=== PATIENT | male | born 1955 | race Caucasian/White ===

== ENCOUNTER → 2020-10-28 00:27 | Outpatient (CLI) | payer MEDICARE, SELFPAY ==
[2020-10-28 17:44] LABS: SARS-CoV-2 RNA PCR Negative
== END ==
PROVIDERS: PCP Internal Medicine; Visit Provider Internal Medicine Gastroenterology
DX: Z01.812 Encounter for preprocedural laboratory examination (principal); Z20.822 Contact with and (suspected) exposure to COVID-19
CPT/HCPCS: C9803; U0003; U0005

== ENCOUNTER 2020-10-31 01:12 | Day surgery (SDC) | payer MEDICARE, SELFPAY ==
[2020-10-18 13:22] VITALS: BMI 35.3
[2020-10-31 06:41] VITALS: BP 145/104; PULSE 96; RESP 20; TEMP 35.8; O2SAT 96; BMI 36.8
[2020-10-31] MEDS: LACTATED RINGERS 1,000 ML 150 ML IV CONT (06:57)
--- NOTE | 2020-10-31 07:24 | PM.HPGS ---
History of Present Illness History of Present Illness Consent: Risks, benefits, and alternatives have been discussed and questions answered. Patient agrees to proceed with procedure. Chief complaint: Personal Hx of Colon Polyps, Family Hx of Colon CA Narrative: Calin Boss is a 65 year old male here for colon cancer screening. He has had polyps removed in the past Review of Systems Review of Systems: All systems reviewed & are unremarkable except as noted in HPI and below PMFSH Social History Social History Smoking status: Never smoker Alcohol intake: current Drinks per week: 6 Substance use type: does not use Living arrangements: with family Spiritual care concerns: No Meds Home Medications and Allergies Home Medications Medication Instructions Recorded Confirmed Type No Home Medications 10/18/20 10/18/20 History Allergies Allergy/AdvReac Type Severity Reaction Status Date / Time No Known Allergies Allergy Verified 10/31/20 06:40 Vital Signs Vital Signs - 24 hr 10/31/20 06:41 Temperature 35.8 C L Pulse Rate 96 Respiratory Rate 20 Blood Pressure 145/104 H Pulse Oximetry 96 Exam Resp: Auscultation: clear to auscultation bilaterally Cardio: Rate: regular rate Rhythm: regular rhythm GI: GI Palp: Yes Soft to palpation and No Tenderness to palpation present (GI) Assessment and Plan Assessment and plan (1) Colon cancer screening: Code(s): Z12.11 - Encounter for screening for malignant neoplasm of colon Status: Acute Assessment and Plan: Colonoscopy with possible biopsy or polypectomy or cautery or injection of substances.
--- NOTE | 2020-10-31 07:30 | WPDANESEPPF ---
Anes - Initial Pre Proc Eval Procedure: Operation Date: 10/31/20 08:00 Proposed Procedures p Screening Colonoscopy - Denzel Sauceda MD Date/Time: 10/31/20 07:30 Surgeon: Denzel Sauceda MD Pre Op Diagnosis: Personal Hx of Colon Polyps, Family Hx of Colon CA Patient Data Age: 65 Gender: M Height: 5 ft 11 in Weight: 119.7 kg Last Vital Signs Temp 96.5 F L 10/31/20 06:41 Pulse 96 10/31/20 06:41 Resp 20 10/31/20 06:41 BP 145/104 H 10/31/20 06:41 Pulse Ox 96 10/31/20 06:41 Allergies Allergy/AdvReac Type Severity Reaction Status Date / Time No Known Allergies Allergy Verified 10/31/20 06:40 Home Medications Medication Instructions Recorded Confirmed Type No Home Medications 10/18/20 10/18/20 History Patient hx anesthesia problems: none Family hx anesthesia problems: none [facility] Past Medical History Medical History (Updated 10/31/20 @ 07:29 by Kemar Mendez MD) Obesity Social History Social History Smoking status: Never smoker Alcohol intake: current Drinks per week: 6 Substance use type: does not use Living arrangements: with family Spiritual care concerns: No Anes - Eval Final PreProcedure Day of Procedure 10/31/20 07:30 Patient weight: obese Heart: regular rate and rhythm Lungs: clear to auscultation Airway: Mallampati scale Last oral intake: >/= 8 hours ASA classification: II Emergent: no Anesthetic plan: proceed Anesthesia type and monitoring: general GIVS and standard monitoring Informed Consent: The patient's anesthetic plan and its attendant risks and benefits were discussed with the patient/family/POA. Questions were solicited and answers provided to the satisfaction of the patient/family/POA.
[2020-10-31] MEDS: SIMETHICONE ORAL SUSPENSION 20 MG/0.3 ML 30 ML BOTTLE 0.6 ML IRRIGATION (07:55)
[2020-10-31 08:04] VITALS: BP 103/64; PULSE 72; RESP 20; O2SAT 95
[2020-10-31 08:14] VITALS: BP 115/72; PULSE 68; RESP 20; O2SAT 96
[2020-10-31 08:24] VITALS: BP 115/78; PULSE 67; RESP 20; O2SAT 95
== END 2020-10-31 08:33 | disposition home or self-care (01) ==
PROVIDERS: PCP Internal Medicine; Visit Provider Internal Medicine Gastroenterology
PROC: 0DJD8ZZ Inspection of Lower Intestinal Tract, Via Natural or Artificial Opening Endoscopic (ICD-10-PCS; CPT 45378; principal; 2020-10-31 08:00)
DX: Z12.11 Encounter for screening for malignant neoplasm of colon (principal); D12.2 Benign neoplasm of ascending colon; K57.30 Diverticulosis of large intestine without perforation or abscess without bleeding; Z80.0 Family history of malignant neoplasm of digestive organs; E66.9 Obesity, unspecified; Z68.36 Body mass index [BMI] 36.0-36.9, adult
CPT/HCPCS: 45385; 88305; C9803; J2704; J7120; U0003; U0005

== ENCOUNTER 2025-04-22 15:42 | Emergency (ER) | payer MEDICARE, SELFPAY ==
[2025-04-22] VITALS (10 sets, daily range): BP systolic 132–153; BP diastolic 78–105; PULSE 67–90; RESP 14–18; TEMP 36.6–36.9; O2SAT 97–100
--- NOTE | ~2025-04-22 | CT_ITS ---
EXAMINATION: CTA BRAIN/CAROTID DATE: 04/22/2025 16:19 INDICATION: Transient ischemic episode TECHNIQUE: Computed tomographic angiography (CTA) of the head and neck was performed with 100 mL Omnipaque-350 intravenous contrast. Multiplanar reconstructions and maximum intensity projection 3D-reconstructions of the carotid arteries and of the intracranial arteries were created by the technologist on a separate workstation. Automated exposure control and iterative reconstruction technique were employed.The dose-length product was 1201.99 mGy-cm. COMPARISON: None. FINDINGS: Intracranial arteries Left vertebral artery is dominant. Minimal amount of nonhemodynamically significant atherosclerotic calcification at the bilateral carotid siphons. There is no hemodynamically significant stenosis in the vertebral, basilar and internal carotid arteries. Both A1 and P1 segments are patent.. There is also a patent intercommunicating artery. There are no aneurysms identified. Cerebral arterial arborization appears symmetric. Carotid arteries: The aortic arch and the great vessels arising from the arch are normal in caliber with no dissection or hemodynamically significant stenosis. There is no evident atherosclerotic plaque with 0% stenosis of the right and left carotid bulbs relative to normal distal artery lumen diameter (NASCET criteria). Mild cervical and upper thoracic spondylosis. Mild dependent predominant atelectasis in the visualized upper lungs which may be related to expiratory phase of imaging. Goiter with asymmetric enlargement of the right thyroid lobe relative to the left without clearly defined thyroid nodules. IMPRESSION: 1. No evident atherosclerotic plaque with 0% stenosis of the right and left carotid bulbs relative to normal distal artery lumen diameter (NASCET criteria). 2. Unremarkable cerebral CT angiogram with no hemodynamically significant stenosis, thrombosis or aneurysm. Reviewed, dictated and finalized at location A. IMPRESSION: 1. No evident atherosclerotic plaque with 0% stenosis of the right and left car otid bulbs relative to normal distal artery lumen diameter (NASCET criteria). 2. Unremarkable cerebral CT angiogram with no hemodynamically significant steno sis, thrombosis or aneurysm.
--- NOTE | ~2025-04-22 | CT_ITS ---
EXAMINATION: CT brain wo jeff, 04/22/2025 16:00 CDT HISTORY: tia COMPARISON: No comparisons available. Technique: Axial images obtained of the brain without contrast. One or more of the following dose reduction techniques were used: automated exposure control, adjustment of the mA and/or kV according to patient size, use of iterative reconstruction technique. Findings: No acute infarct or parenchymal hemorrhage. No abnormal mass or mass effect. No midline shift. No extra-axial fluid collections. No hydrocephalus. Mastoid air cells unremarkable. Sinuses and orbits unremarkable. No acute fracture. No significant facial or scalp soft tissue swelling evident. No radiopaque foreign body is seen. Impression: 1.No acute intracranial abnormality. Reviewed, dictated and finalized at location A. Impression: 1.No acute intracranial abnormality.
--- NOTE | ~2025-04-22 | XR_ITS ---
EXAMINATION: XR chest 1V, 04/22/2025 16:07 CDT HISTORY: tia COMPARISON: No comparisons available. Technique: Single view. Findings: The lungs are clear, no effusion. No pneumothorax. Heart is normal size. Mediastinal and hilar contours are within normal limits. Bony thorax no acute abnormality. Impression: No acute cardiopulmonary abnormality. Reviewed, dictated and finalized at location A. Impression: No acute cardiopulmonary abnormality.
--- NOTE | 2025-04-22 15:52 | ECG_ITS ---
Test Date: 2025-04-22 16:29:31 Measurements Intervals Harper Rate: 78 P: 60 FL: 162 QRS: -7 QRSD: 98 T: 10 QT: 370 QTc: 424 Interpretive Statements SINUS RHYTHM POOR R-WAVE PROGRESSION CANNOT RULE OUT INFERIOR INFARCTION, AGE INDETERMINATE ABNORMAL ECG No previous ECG available for comparison Electronically Signed On 04-22-2025 18:01:03 CDT by Juan Hewitt M.D.
[2025-04-22 16:08] LABS: Estimated CRCL calculation 69 ml/min; Estimated Glomerular Filt Rate > 60
[2025-04-22 16:11] LABS: Hematocrit 50.5 % (42.0-52.0); Hemoglobin 16.1 g/dL (14.0-18.0); Immature Granulocyte Percent A 0.4 % (0-0.5); Lymphocytes Absolute Auto 1.77 K/mm3 (0.9-3.2); Mean Corpuscular HGB Conc 31.9 g/dl (32-36); Mean Corpuscular Hemoglobin 29.4 pg (26-34); Mean Corpuscular Volume 92.3 fl (80-100); Nucleated Red Blood Cells Absolute Auto 0.000 K/mm3 (0.0-0.012); Nucleated Red Blood Cells Perc 0.0 % (0.0-0.2); Platelet Count Result 208 k/mm3 (150-375); Red Blood Count 5.47 M/mm3 (4.6-6.20); White Blood Count 7.8 K/mm3 (4.5-10.0)
[2025-04-22 16:16] LABS: Alanine Aminotransferase 23 U/L (6-50); Albumin Level 4.5 g/dL (3.5-5.1); Alkaline Phosphatase 87 U/L (38-126); Anion Gap 6 mmol/L (4-12); Aspartate Amino Transferase 26 U/L (17-59); Bilirubin,Total 0.8 mg/dL (0.2-1.3); Blood Urea Nitrogen 13 mg/dL (9-20); Calcium 9.2 mg/dL (8.4-10.2); Carbon Dioxide 27 mmol/L (22-30); Chloride 106 mmol/L (98-107); Estimated CRCL calculation 74 ml/min; Estimated Glomerular Filt Rate > 60; Glucose 106 mg/dL (65-110); Potassium 4.1 mmol/L (3.4-5.0); Sodium 139 mmol/L (137-145); Total Protein 8.2 g/dL (6.3-8.2)
[2025-04-22 16:22] LABS: INR 1.0; Partial Thromboplastin Time 29.7 Seconds (22.3-36.8); Prothrombin Time 13.2 Seconds (11.1-14.7)
[2025-04-22 16:28] LABS: Troponin I < 0.012 ng/mL (0.000-0.034)
--- OUTSIDE RECORDS SUMMARY | 2025-04-22 17:35 | XMS_ITS | Clinical Summary ---
Author Organization [facility] [address] Address [address] [place] [address] Care Team Providers Care Manager Room Name Role Phone Jericho Watson MD Primary Care Provider [phone] Allergies No known active allergies Medications rosuvastatin (CRESTOR) 5 mg tablet Take 1 tablet (5 mg total) by mouth daily 90 tablet 1 4 06/29/20 25 Active sildenafiL (VIAGRA) 100 mg tablet TAKE 1 TABLET BY MOUTH NEEDED FOR ERECTILE DYSFUNCTION 18 tablet 2 5 Active Active Problems Problem Noted Date Diagnosed Date Routine general medical exam ination at a health care facility 06/24/2023 Assessment & Plan (06/24/2023 1:06 PM ADOPTION SPECIALIST): Labs today, including Hep C Ab Encouraged 150 min/weekly of moderate intensity activity Limit EtOH to 2/daily Will verify last dates of Tdap and 2nd dose of Shingrix COLO due 2025 Will start atorvastatin 20mg HS for LDL 182, TC 235 (use, s/e reviewed) Handout of Diabetic diet given today Resolved Problems Problem Noted Date Diagnosed Date Resolved Date Acute pain of left knee 10/16/202106/06 Assessment & Plan (10/16/2021 9:10 AM CDT): Has failed PT and conservative measures, xrays negative Will obtain MRI of L knee Immunizations Immunization Administration Dates Next Due Influenza, Quadrivalent, Rec ombinant, Egg Free, Preservative Free, Intramuscular 05/17/2020 Influenza, Unspecified 05/21/2023 Pneumococcal Conjugate PCV 13 06/16/2020 Pneumococcal Polysaccharide PPV23 10/17/2021 ZOSTER Recombinant 05/25/2020 Surgical History Surgery Date Site/Laterality Comments TONSILLECTOMY KNEE SURGERY Left Torn meniscus Medical History Medical History Date Comments Hyperlipidemia Family History Medical History Relation Name Comments Diabetes Brother 1 unsure Cancer Brother 2 Oropharyngeal No Known Problems Brother 3 No Known Problems Maternal Grandfather No Known Problems Maternal Grandmother Cancer Mother Lung No Known Problems Paternal Grandfather No Known Problems Paternal Grandmother Relation Name Status Comments Brother 1 Alive Brother 2 Alive Brother 3 Alive Father Maternal Grandfather Maternal Grandmother Mother Paternal Grandfather Paternal Grandmother Social History Tobacco Use Types Packs/Day Years Used Date Smoking Tobacco: Never Tobacco Cessation:Counseling Given: Not Answered AUDIT-C Answer Date Recorded Q1: How often do you have a drink containing alc ohol? 2-3 times a week 06/24/2023 Q2: How many drinks containi ng alcohol do you have on a typical day when you are drinking? 5 or 6 06/24/2023 Frequency of Binge Drinking Not on file 06/06 PHQ-2 Answer Date Recorded PHQ-2 Total Score (If total score is 3 or more points, staff should administer the PHQ-9) 0 06/22/2024 Sex and Gender Information Value Date Recorded Sex Assigned at Not on file Legal Sex Male 5:51 PM ADOPTION SPECIALIST Gender Identity Male 04/21/2021 9:19 PM CDT Sexual Orientation Straight 04/21/2021 9: 19 PM CDT Obstetrics History Last Filed Vital Signs Vital Sign Reading Time Taken Comments Blood Pressure 110/78 06/25/2024 2:04 PM ADOPTION SPECIALIST Pulse 81 06/25/2024 2:04 PM ADOPTION SPECIALIST Temperature - - Respiratory Rate - - Oxygen Saturation 95% 06/25/2024 2:04 PM ADOPTION SPECIALIST Inhaled Oxygen Concentration - - Weight 110.7 kg (244 lb) 06/25/2024 2:04 PM ADOPTION SPECIALIST Height 177.8 cm (5' 10) 09/25/2023 11:50 AM ADOPTION SPECIALIST Body Mass Index 35.01 09/25/2023 11:50 AM ADOPTION SPECIALIST Plan of Treatment Scheduled Procedures Name Priority Associated Diagnoses Date/Ti me COLONOSCOPY Encounter for screening colonoscopy Health Maintenance Due Date Last Done Comments DTaP/Tdap/Td Vaccine (1 - Tdap) 1966 Hepatitis B Screening 1971 Zoster Vaccine (2 of 2) 07/20/2020 05/25/2020 Influenza Vaccine (#1) 2025 05/21/2023, 2019 Depression Screening 06/25/2025 06/25/2024, 06/24/2023, 06/22/2022, Additional history exists Fall Risk Assessment 06/25/2025 06/25/2024, 06/24/2023, 06/22/2022, Additional history exists Well Visit 65+ 06/25/2025 06/25/2024, 06/06, 06/22/2022, Additional history exists Colon Cancer Screening-Colonoscopy 10/31/2025 10/31/2020 Pneumococcal vaccine 65+ Completed 10/17/2021, 06/05 Hepatitis C Screening Completed 06/24/2023 Prostate Cancer Screening-PSA Discontinued , 06/24/2023, 06/22/2022, Additional history exists Procedures Procedure Name Priority Date/Time Associated Diagnosis Comments PSA SCREEN Routine 06/25/2024 3:56 PM ADOPTION SPECIALIST Routine general medical examination at a health care facility Screening for prostate cancer Mixed hyperlipidemia HEPATITIS C ANTIBODY Routine 06/24/2023 1:16 PM ADOPTION SPECIALIST Pure hypercholesterolemia COLONOSCOPY Routine 10/31/2020 from Last 3 Months or Most Recently Relevant to Health Maintenance Results * PSA screen (06/25/2024 3:56 PM ADOPTION SPECIALIST) PSA-Total 0.70 <=6.20 ng/mL Comment: Interpretive Data AGE SEX REFERENCE INTERVAL 0 minutes-150 years Female None 0 minutes-49 years Male None 50-59 years Male 0-3.90 60-69 years Male 0-5.40 70-79 years Male 0-6.20 80-150 years Male 0-6.20 The Ugo PSA Total assay procedure was used. Results from different manufacturers or methods may not be comparable. Serial testing should be performed using the same method. Current interpretive data last revised 21. Blood 06/25/2024 3:56 PM ADOPTION SPECIALIST 06/25/2024 4:14 PM ADOPTION SPECIALIST Jericho Watson MD LAB BLOOD ORDERABLES Final Re sult Performing Organization Address [facility] Co de Phone Number [facility] Department [place] [address] * Hepatitis C antibody Blood (06/24/2023 1:16 PM ADOPTION SPECIALIST) Pathologist [facility] [place] Hep C Ab Non Reactive Non Reactive [facility] - 01 Comment: HCV antibody alone does not differentiate between previously resolved infection and active infection. Equivocal and Reactive HCV antibody results should be followed up with an HCV RNA test to support the diagnosis of active HCV infection. Blood 06/24/2023 1:16 PM ADOPTION SPECIALIST 06/24/2023 Narrative [facility] - 06/25/2023 10:11 AM ADOPTION SPECIALIST Performed at: 01 - [facility] [id number] Supervisor Dry Cleaning: Bryan Donovan PhD, Phone: [phone] Nancy Cheatham PUBLICATION DIRECTOR LAB MICROBIOLOGY - GENER AL ORDERABLES Final Result Performing Organization Address [facility] Co de Phone Number [facility] - 01 * Colonoscopy (10/31/2020) Anatomical Region Laterality Modality Other Narrative 10/31/2020 Pt had 3--21 Repeat in 5 years Historical Provider ENDOSCOPY PROCEDURES Connie l Result from Last 3 Months or Most Recently Relevant to Health Maintenance Insurance [employer] MEDICARE [address] [place] [id number] FORMERLY [facility] [place] [address] AET[employer] MEDICARE UHC MEDICARE ADVANTAGE FOR[facility]LY [facility] MEDICARE Care Teams Manager Room Relationship Specialty Start Date End Date Jericho Watson MD PCP - General Internal Medicine 06/02/20
[2025-04-22] MEDS: ASPIRIN 325 MG TABLET PO (18:01)
--- NOTE | 2025-04-22 19:55 | PC.NURSE ---
Pt accepted to [facility]. No bed at this time
--- NOTE | 2025-04-22 20:07 | ED_ITS ---
HPI - Neuro Symptoms/Deficit General Chief Complaint: Neuro Symptoms/Deficit Stated Complaint: had an episode Time Seen by Provider: 04/22/25 15:51 Source: patient Mode of arrival: ambulatory Limitations: no limitations History of Present Illness HPI Narrative: 69-year-old here with a complains of left-sided facial droop associated with slurring of speech, arm and fingers numb and tingling sensation which started about 1:00 a.m. this afternoon while he was at work symptoms lasted about 3 hours by the time he arrived to the ER his symptoms completely resolved he had a similar episode on April 16. However this time it lasted for longer period of time. He denies having any headache or chest pain. Mom Onset (ago): hour(s) (4) Last Observed Normal: 13:00 Location: speech, left face and left arm History of same: Yes Severity: moderate Quality: numb and tingling Relieving factors: none Exacerbating factors: none Context: sudden onset Associated symptoms: denies other symptoms Related Data Home Medications ?Medication ?Instructions ?Recorded ?Confirmed ?Last Taken ?Type No Home Medications 10/18/20 10/18/20 U nknown History Allergies Allergy/AdvReac Type Severity Reaction Status Date / Time No Known Allergies Allergy Verified 10/31/20 06:40 Review of Systems 2 Review of Systems: All systems reviewed & are unremarkable except as noted in HPI and below Constitutional: Constitutional: Reports no additional constitutional complaints Eyes: Eyes: Reports no additional eye complaints ENT: Reports system reviewed and no additional complaints, except as documented Cardiovascular: Cardiovascular: Reports no additional cardiovascular complaints Respiratory: Respiratory: Reports no additional respiratory complaints Gastrointestinal: Gastrointestinal: Reports no additional gastrointestinal complaints Genitourinary: Genitourinary: Reports no additional male genitourinary complaints Musculoskeletal: Musculoskeletal: Reports no additional musculoskeletal complaints Integumentary/Breasts: Skin/Breast: Reports system reviewed and no additional complaints, except as docu Neurologic: Reports as per HPI [facility] Past Medical History Medical History Obesity Social History Social History Smoking status: Never smoker Alcohol intake: current Drinks per week: 6 Substance use type: does not use Living arrangements: with family Spiritual care concerns: No Exam 2 Narrative: GENERAL: Well-appearing, well-nourished, and in no acute distress. HEAD: Normocephalic, atraumatic. EYES: PERRLA and EOMI. ENT: Nares clear, no rhinorrhea or epistaxis. Mucous membranes moist. NECK: Supple. CHEST: Clear to auscultation. No respiratory distress. HEART: Regular rate and rhythm. No murmur heard. Normal peripheral pulses. ABDOMEN: Soft, nontender, nondistended, normal active bowel sounds. EXTREMITIES: Normal range of motion. No edema. SKIN: Warm, dry, no rash. NEURO: No focal deficits. Alert and oriented x3. PSYCH: Normal mood and affect. Course Course Emergency Course: Patient upon arrival had no neuro deficit. He had a CT of the brain and a CTA of head and neck both were unremarkable his EKG was normal lab work was unremarkable. I discussed with Stroke Neurology at [facility] recommended admission. I did inform patient about his lab work, CT findings is agreeable for admission. Discussed with the hospitalist at [facility] Dr. Smith will accept the pt . Vital Signs Vital signs: Vital Signs Temperature 36.9 C 04/22/25 15:46 Pulse Rate 90 04/22/25 15:46 Respiratory Rate 16 04/22/25 15:46 Blood Pressure 145/105 H 04/22/25 15:46 Pulse Oximetry 99 04/22/25 15:46 Temperature 36.6 C 04/22/25 19:58 Pulse Rate 67 04/22/25 19:58 Respiratory Rate 15 04/22/25 19:58 Blood Pressure 148/78 H 04/22/25 19:58 Pulse Oximetry 98 04/22/25 19:58 Oxygen Delivery Room Air 04/22/25 16:23 MDM - Neuro Symptoms/Deficit Differential Diagnosis Differential diagnosis: Likely cerebrovascular accident Medical Records Attestation: I reviewed the patient's medical records. Lab Data Attestation: I reviewed the patient's lab results. 04/22/25 15:56 04/22/25 16:05 Labs: Lab Results 04/22/25 04/22/25 04/22/25 Range/Units 15:52 15:56 16:05 WBC 7.8 (4.5-10.0) K/mm3 RBC 5.47 (4.6-6.20) M/mm3 Hgb 16.1 (14.0-18.0) g/dL Hct 50.5 (42.0-52.0) % MCV 92.3 (80-100) fl MCH 29.4 (26-34) pg MCHC 31.9 L (32-36) g/dl RDW 14.6 H (11.5-14.5) % Plt Count 208 (150-375) k/mm3 MPV 11.6 H (7.4-10.4) fl Immature Gran % (Auto) 0.4 (0-0.5) % Neut % (Auto) 67.5 (45.5-73.1) % Lymph % (Auto) 22.8 (18.3-44.2) % Morton % (Auto) 7.7 (2.6-8.5) % Eos % (Auto) 1.2 (0-4.4) % Baso % (Auto) 0.4 (0.2-1.2) % Lymph # (Auto) 1.77 (0.9-3.2) K/mm3 Morton # (Auto) 0.6 (0.1-0.6) K/mm3 Eos # (Auto) 0.1 (0-0.3) K/mm3 Baso # (Auto) 0.0 (0.0-0.1) K/mm3 Abs Immat Gran (auto) 0.03 (0.00-0.031) K/mm3 Absolute Neuts (auto) 5.3 (1.3-6.7) K/mm3 Absolute Nucleated RBC 0.000 (0.0-0.012) K/mm3 Nucleated RBC % 0.0 (0.0-0.2) % PT 13.2 (11.1-14.7) Seconds INR 1.0 APTT 29.7 (22.3-36.8) Seconds Sodium 139 (137-145) mmol/L Potassium 4.1 (3.4-5.0) mmol/L Chloride 106 (98-107) mmol/L Carbon Dioxide 27 (22-30) mmol/L Anion Gap 6 (4-12) mmol/L BUN 13 (9-20) mg/dL Creatinine 1.02 1.10 (0.7-1.3) mg/dL Estim Creat Clear Calc 74 69 ml/min Estimated GFR > 60 > 60 (59 - ) Glucose 106 (65-110) mg/dL POC Capillary Glucose 101 (65-105) mg/dl Calcium 9.2 (8.4-10.2) mg/dL Total Bilirubin 0.8 (0.2-1.3) mg/dL AST 26 (17-59) U/L ALT 23 (6-50) U/L Alkaline Phosphatase 87 (38-126) U/L Troponin I < 0.012 (0.000-0.034) ng/mL Total Protein 8.2 (6.3-8.2) g/dL Albumin 4.5 (3.5-5.1) g/dL Imaging Data Radiologist's impression: ITS Impressions Head CT 04/22/25 16:11 Impression: 1.No acute intracranial abnormality. Chest X-Ray 04/22/25 16:21 Impression: No acute cardiopulmonary abnormality. Head/Neck CTA 04/22/25 16:23 IMPRESSION: 1. No evident atherosclerotic plaque with 0% stenosis of the right and left carotid bulbs relative to normal distal artery lumen diameter (NASCET criteria). 2. Unremarkable cerebral CT angiogram with no hemodynamically significant stenosis, thrombosis or aneurysm. ECG Data EKG #1: ECG completion date: 04/22/25 ECG completion time: 16:29 EKG Interpretation: normal rate (78), sinus rhythm, no ectopy, no ST changes and normal QRS Discharge Plan Discharge Clinical Impression: TIA (transient ischemic attack) Patient Disposition: Acute Care Hospital Condition: Stable Patient Language: Polish Prescriptions: No Action No Home Medications Follow-up/Referrals: Shirley,Jericho Mishra MD [Primary Care Provider] Quality Stroke Date of last known normal: 04/22/25 Time of last known normal: 16:20 Stroke Scale Stroke Scale 1: Stroke scale date:: 04/22/25 Stroke scale time:: 16:25 1a Level of consciousness: alert-0 1b Level of consciousness questions: answers both correctly-0 1c Level of consciousness commands: obeys both correctly-0 2 Best gaze: normal-0 3 Visual: no visual loss-0 4 Facial palsy: normal-0 5a Motor: left arm: no drift-0 5b Motor: right arm: no drift-0 6a Motor: left leg: no drift-0 6b Motor: right leg: no drift-0 7 Limb ataxia: absent-0 8 Sensory: normal-0 9 Best language: no aphasia-0 10 Dysarthria: normal-0 11 Extinction and inattention: no abnormality-0 Level:: 0
--- NOTE | 2025-04-22 21:38 | PC.NURSE ---
Nurse report given to Alondra SKY.
== END 2025-04-22 21:50 | disposition short-term general hospital (02) ==
PROVIDERS: Emergency Provider Family Medicine; PCP Internal Medicine
DX: G45.9 Transient cerebral ischemic attack, unspecified (principal); R20.2 Paresthesia of skin; E66.9 Obesity, unspecified; Z68.36 Body mass index [BMI] 36.0-36.9, adult; R94.31 Abnormal electrocardiogram [ECG] [EKG]
CPT/HCPCS: 36415; 70450; 70496; 70498; 71045; 80053; 82948; 84484; 85025; 85610; 85730; 93005; 99285; A9270; Q9967

== ENCOUNTER 2025-07-07 09:58 | Outpatient (RCR) | payer MEDICARE, SELFPAY ==
--- NOTE | 2025-07-07 11:53 | OTOPEVDC ---
Assessment and note entered by Titus Iraheta, OTR/L, CHT Thank you for referring Calin Boss to [facility].? An evaluation has been completed. No further treatment is needed. Evaluation Information Assessment Status Evaluation Diagnosis Brain mass (G93.89) Subjective Information Patient underwent brain tumor resection 06/17/25 and was discharged from [place] 2 days later. He begins 30 days chemo and radiation later this month. He reports he is unsure why he is here today as he is doing so well. He reports he is functioning at his baseline. 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 Reported Pain Level Pain Score 0: Self Report Assessment OT Clinical Summary Patient referred to OT with dx of brain mass s/p excision ~3 weeks ago. He presents with intact, normal, and symmetrical strength and coordination. SLUMS score 26/30. Patient reports no decline in ADL or work task performance. He feels as though he is functioning at his baseline. No further skilled OT indicated at this time. D/C OT services . Plan of Care OT Services Indicated No
== END 2025-07-07 15:41 | disposition home or self-care (01) ==
LOC: ANHOT 09:58
PROVIDERS: PCP Internal Medicine
DX: G93.89 Other specified disorders of brain (principal)
CPT/HCPCS: 97166